=== PATIENT | female | born 1995 ===

== ENCOUNTER 2025-07-31 19:19 | Emergency (ER) | payer OTHER ==
[~2025-07-31] VITALS: Ht 175.3 cm; Wt 75.0 kg
[2025-07-31 19:32] VITALS: BP 142/95; PULSE 85; RESP 16; TEMP 98; O2SAT 99
== END 2025-07-31 19:41 | disposition left against medical advice (07) ==
LOC: EMS 19:19
DX: M54.50 Low back pain, unspecified (principal); M79.605 Pain in left leg; Z53.21 Procedure and treatment not carried out due to patient leaving prior to being seen by health care provider